=== PATIENT | male | born 1955 | race Caucasian/White ===

== ENCOUNTER → 2020-09-12 | Outpatient (CLI) | payer MEDICARE, BC ==
[~2020-09-12] MED LIST: ASPI81TA45 PO; BUDE180A INH; DOCU-131 PO; HYDR-2214 PO; METH-640 PO; MONT10TA6 PO; OMEP-110 PO; ROSU20TA2 PO; TAMS-11 PO
== END | disposition home or self-care (01) ==
LOC: STAR 07:15
PROVIDERS: ATTEND Student in an Organized Health Care Education/Training Program
DX: Z01.818 Encounter for other preprocedural examination (principal); N20.0 Calculus of kidney; I25.2 Old myocardial infarction; Z20.822 Contact with and (suspected) exposure to COVID-19
CPT/HCPCS: 93005; U0003; U0005

== ENCOUNTER 2020-09-19 13:17 | Day surgery (SDC) | payer MEDICARE, BC ==
[~2020-09-19] VITALS: Ht 172.7 cm; Wt 87.9 kg
[2020-09-19 13:53] VITALS: BP 136/89
[2020-09-19] MEDS ORDERED: CHLORHEXIDINE 15 ML UDC ONE (13:58)
[2020-09-19] MEDS ORDERED: LACTATED RINGERS 1,000 ML IV SCH (14:00)
[2020-09-19] MEDS ORDERED: CHLORHEXIDINE 15 ML UDC PO ONE (14:00)
[2020-09-19] MEDS ORDERED: MIDAZOLAM 1 MG/ML, 2ML ONE (15:57)
[2020-09-19] MEDS ORDERED: PROPOFOL 10 MG/ML, 20ML ONE (16:12)
[2020-09-19] MEDS ORDERED: SUCCINYLCHOLINE 20 MG/ML, 10ML ONE (16:12)
[2020-09-19] MEDS ORDERED: ROCURONIUM 10 MG/ML,10ML ONE (16:12)
[2020-09-19] MEDS ORDERED: ONDANSETRON 2MG/ML, 2ML ONE (16:12)
[2020-09-19] MEDS ORDERED: DEXAMETHASONE 4 MG/ML, 1ML ONE (16:12)
[2020-09-19] MEDS ORDERED: CEFAZOLIN 1,000 MG ONE (16:12)
[2020-09-19] MEDS ORDERED: FENTANYL PF 250 MCG/5ML ONE (16:29)
[2020-09-19] MEDS ORDERED: FENTANYL PF 100 MCG/2ML IV PRN (16:30)
[2020-09-19] MEDS ORDERED: ALBUTEROL SULFATE 2.5 MG/3 ML NPPB PRN (16:30)
[2020-09-19] MEDS ORDERED: DIAZEPAM 5 MG/ML, 2ML IVPush PRN (16:30)
[2020-09-19] MEDS ORDERED: LABETALOL 5MG/ML, 20ML IV PRN (16:30)
[2020-09-19] MEDS ORDERED: ONDANSETRON 2MG/ML, 2ML IVPush PRN (16:30)
[2020-09-19] MEDS ORDERED: PROMETHAZINE 25 MG/ML, 1ML IVPush PRN (16:30)
[2020-09-19] MEDS ORDERED: hydrALAzine 20 MG/ML, 1ML IV PRN (16:30)
[2020-09-19] MEDS ORDERED: LORazepam 2 MG/ML, 1ML IVPush PRN (16:30)
[2020-09-19] MEDS ORDERED: MIDAZOLAM 1 MG/ML, 2ML IV PRN (16:30)
[2020-09-19] MEDS ORDERED: OXYcodone 5 MG/5 ML ORAL.SOL UDC PO PRN (16:30)
[2020-09-19] MEDS ORDERED: MEPERIDINE/PF 25MG/0.5ML IVPush PRN (16:30)
[2020-09-19] MEDS ORDERED: EPHEDRINE 50 MG/ML, 1ML IVPush PRN (16:30)
[2020-09-19] MEDS ORDERED: PROMETHAZINE 12.5 MG SUPP PR PRN (16:30)
[2020-09-19] MEDS ORDERED: DIPHENHYDRAMINE 50 MG/ML, 1ML IVPush PRN ×2 (16:30)
[2020-09-19] MEDS ORDERED: OMNIPAQUE 350 MG/ML, 50 ML BOTTLE IV ONE (16:37)
[2020-09-19] MEDS ORDERED: OMNIPAQUE 350 MG/ML, 50 ML BOTTLE ONE (16:52)
[2020-09-19] MEDS: HYDROmorphone 1 MG/ML, 1ML INJ IVPush PRN ×2 (18:19→18:45)
[2020-09-19] MEDS ORDERED: LABETALOL 5MG/ML, 20ML ONE (19:07)
[2020-09-19] MEDS ORDERED: hydrALAzine 20 MG/ML, 1ML ONE (19:07)
== END 2020-09-19 20:40 | disposition home or self-care (01) ==
LOC: OR 13:17
PROVIDERS: ATTEND Student in an Organized Health Care Education/Training Program
DX: N13.2 Hydronephrosis with renal and ureteral calculous obstruction (principal); N40.1 Benign prostatic hyperplasia with lower urinary tract symptoms; N13.8 Other obstructive and reflux uropathy; E78.5 Hyperlipidemia, unspecified; J44.9 Chronic obstructive pulmonary disease, unspecified; Z79.891 Long term (current) use of opiate analgesic; Z79.899 Other long term (current) drug therapy; Z82.49 Family history of ischemic heart disease and other diseases of the circulatory system
CPT/HCPCS: 52353; 74420; 82360; 88300; C1769; J0330; J0690; J1100; J1170; J2250; J2405; J2704; J3010; J7120; Q9967